=== PATIENT | female | born 1955 | race Hispanic/Latino ===

== ENCOUNTER 2019-08-08 10:44 | Emergency (ER) | payer BC ==
--- NOTE | 2019-08-08 11:22 | RAD REPORT ---
EXAM DESCRIPTION: CT - Ct Stroke Brain Wo Cont - 08/08/2019 11:13 am CLINICAL HISTORY: Confusion/alteration of awareness COMPARISON: none TECHNIQUE: Computed axial tomography of the head was obtained. All CT scans are performed using dose optimization technique as appropriate and may include automated exposure control or mA/KV adjustment according to patient size. FINDINGS: An intracranial bleed is not seen . The ventricles are normal in caliber. No extra-axial fluid collection is noted. Fluid within the sinuses/ mastoids is not seen. IMPRESSION: No acute intracranial abnormality is seen. If patient's symptoms persist MRI of the bra in would be recommended. Dr Salinas of the emergency room was notified at 11:16 a.m. August 08, 2019
[2019-08-08 12:01] LABS: Absolute Lymphocytes (CBC) 1.4 K/uL (0.7-4.9); Basophils % 0.5 % (0-1.3); Hematocrit 38.4 % (36.0-45.0); MPV 8.9 fL (7.6-11.3)
[2019-08-08 12:04] LABS: Protime INR 0.94
[2019-08-08 12:07] LABS: Potassium 3.6 mmol/L (3.5-5.1)
--- NOTE | 2019-08-08 13:15 | RAD REPORT ---
EXAM DESCRIPTION: MRI - Brain W/Wo Cont - 08/08/2019 1:03 pm CLINICAL HISTORY: CONFUSED Headache, drowsiness, CVA symptomology COMPARISON: MRA Head Wo Cont dated 08/08/2019; Ct Stroke Brain Wo Cont dated 08/08/2019 TECHNIQUE: Multi-sequence, multiplanar MR imaging of the brain was performed with contrast. FINDINGS: No intracranial hemorrhage, hydrocephalus, or extra-axial fluid collection.Few tiny foci o f T2 and FLAIR hyperintensity in the periventricular white matter. No edema or shift of midline struc tures. No intracranial mass. DWI is negative for acute CVA. The midline structures are normally formed. Mastoid air cells and paranasal sinuses are clear. Post-contrast images show no abnormal enhancement to suggest tumor or infection. IMPRESSION: Negative for acute CVA or other acute intracranial process.
--- NOTE | 2019-08-08 13:24 | RAD REPORT ---
EXAM DESCRIPTION: MRI - MRA Head Wo Cont - 08/08/2019 12:58 pm CLINICAL HISTORY: CONFUSED CVA COMPARISON: Ct Stroke Brain Wo Cont dated 08/08/2019 FINDINGS: 3D noncontrast [id number] MR angiography of the [place] was performed. No aneurysm, flow-limiting stenosis or vascular malformation is seen. Forward flow seen in left-sided dominant vertebral arteries. The visualized dural venous sinuses appear patent. IMPRESSION: No significant flow abnormality of the [place] is identified.
--- NOTE | 2019-08-08 13:27 | RAD REPORT ---
EXAM DESCRIPTION: MRI - MRA Neck W/Wo Cont - 08/08/2019 1:03 pm CLINICAL HISTORY: CONFUSED Headache, drowsiness, CVA symptomology COMPARISON: No comparisons FINDINGS: Contrast enhance 2D [id number] MR angiography of the neck vessels was performed. A left aortic arch is noted with normal great vessel branching pattern. Subclavian arteries and common carotid arteries bilaterally are widely patent. Mild narrowing is pres ent at the origin of both external carotid arteries. No internal carotid artery stenosis is seen. Lef t-sided dominant vertebral artery is seen with poor flow with both vertebral artery is identified. IMPRESSION: No flow abnormality of the neck vessels identified.
--- OUTSIDE RECORDS SUMMARY | 2019-08-08 13:27 | XMS REPORT | Continuity of Care Document ---
:1955 Author Organization [facility] t Address [address] [id number] Care Team Providers Name Role Phone Unavailable Unavailable Unavailable Payers Payer Name Policy Type Policy Number Effective Date Expiration Date S ource Problems This patient has no known problems. Allergies, Adverse Reactions, Alerts Allergy Allergy Status Severity Reaction(s) Onset Inactive Treating Comm ents Source Name Type Date Date Clinician No Known DA Active U 2006-02 [facility] 03[facility]07 [facility] No Known DA Active U 2006-[facility] 03[facility] No Known DA Active U 2006-02 [facility] 03[facility]07 [facility] No Known DA Active U 2006-02 [facility] Other 03-07 [facility] Medications This patient has no known medications. Procedures This patient has no known procedures. Results This patient has no known results.
--- NOTE | 2019-08-08 13:55 | ER ---
Nurse's Notes [facility] Name: Megha Knox Age: 63 yrs Sex: Female : 1955 Arrival Date: 08/08/2019 Time: 10:50 Bed 3 Private MD: Ramirez Okeefe Diagnosis: Confusion;Malaise and fatigue;Other transient cerebral ischemic attacks and related syndromes Presentation: 08/07 10:58 Chief complaint: Patient states: "I was at work at the [employer] and they have cameras, so ss the HR lady called me and asked me if I was okay. I told her I was a little slow getting started today, and a few coworkers told me my words were backwards." Pt has no complaints other than a L sided headache that started just prior to arrival. Pt states, "for the past 3 weeks or so I've had like palpitations off and on.". Coronavirus screen: Proceed with normal triage. Patient denies a cough. Patient denies shortness of breath or difficulty breathing. Patient denies measured and/or subjective temperature greater than 100.4F prior to today's visit. Patient denies travel on a cruise ship or to a country the [facility] currently lists as an affected area. Patient denies contact with known and/or suspected case of COVID-19. Ebola Screen: Patient denies exposure to infectious person. Patient denies travel to an Ebola-affected area in the 21 days before illness onset. Initial Sepsis Screen: Does the patient meet any 2 criteria? No. Patient's initial sepsis screen is negative. Does the patient have a suspected source of infection? No. Patient's initial sepsis screen is negative. Risk Assessment: Do you want to hurt yourself or someone else? Patient reports no desire to harm self or others. Onset of symptoms is unknown. 10:58 Method Of Arrival: Ambulatory ss 10:58 Acuity: LYRIC 2 ss Historical: - Allergies: 11:03 No Known Allergies; ss - Home Meds: 11:03 diphenhydramine HCl 25 mg Oral cap [Active]; metoprolol tartrate 25 mg Oral tab 1 tab ss once daily [Active]; - PMHx: 11:03 Hypertension; ss - PSHx: 11:03 L mastectomy; ss - Immunization history:: Adult Immunizations up to date. - Social history:: Smoking status: Patient denies any tobacco usage or history of. Screenin:15 Abuse screen: Denies threats or abuse. Nutritional screening: No deficits noted. em Tuberculosis screening: No symptoms or risk factors identified. 11:15 Fall Risk None identified. em Assessment: 11:20 General: Appears in no apparent distress. comfortable, Behavior is calm, cooperative, em appropriate for age, Denies fever. Pain: Complains of pain in head Pain currently is 3 out of 10 on a pain scale. Neuro: Level of Consciousness is awake, alert, obeys commands, Oriented to person, place, time, situation, Appropriate for age Filer Helper are equal bilaterally Moves all extremities. Gait is steady, Speech is normal, Facial symmetry appears normal, reports she was told be her co-workers that her speech was "backwards" . Reports headache Denies weakness blurred vision numbness. Cardiovascular: Denies chest pain, Capillary refill < 3 seconds Patient's skin is warm and dry. Respiratory: Airway is patent Respiratory effort is even, unlabored, Respiratory pattern is regular, symmetrical. GI: Abdomen is flat, Patient currently denies nausea, vomiting. Derm: Skin is intact, is healthy with good turgor, Skin is pink, warm \\T\\ dry. Musculoskeletal: Capillary refill < 3 seconds, Range of motion: intact in all extremities. 11:22 Reassessment: Dr Salinas at the bedside. sv 11:57 Reassessment: Patient appears in no apparent distress at this time. pt wheeled to MRI. em 13:00 Reassessment: Patient appears in no apparent distress at this time. Patient and/or em family updated on plan of care and expected duration. Pain level reassessed. Patient is alert, oriented x 3, equal unlabored respirations, skin warm/dry/pink. 14:00 Reassessment: Patient appears in no apparent distress at this time. Patient and/or em family updated on plan of care and expected duration. Pain level reassessed. Patient is alert, oriented x 3, equal unlabored respirations, skin warm/dry/pink. Vital Signs: 10:58 BP 158 / 68; Pulse 78; Resp 15; Temp 98.1(TE); Pulse Ox 100% on R/A; Weight 71.21 kg; ss Height 5 ft. 4 in. (162.56 cm); Pain 3/10; 11:45 BP 157 / 71; Pulse 72; Resp 16; Pulse Ox 100% ; sv 13:23 BP 153 / 81; Pulse 68; Resp 24; Pulse Ox 100% ; sv 10:58 Body Mass Index 26.95 (71.21 kg, 162.56 cm) ED Course: 10:50 Patient arrived in ED. mr 10:50 Ramirez Okeefe MD is Private Physician. mr 11:02 Triage completed. ss 11:03 Arm band placed on right wrist. ss 11:07 Momo Bermeo, RN is Primary Nurse. em 11:13 Guanakito Salinas MD is Attending Physician. kdr 11:14 CT Stroke Brain w/o Contrast In Process Unspecified. EDMS 11:20 Patient has correct armband on for positive identification. Placed in gown. Bed in low em position. Call light in reach. Side rails up X2. Adult w/ patient. threat monitoring analyst on. Pulse ox on. NIBP on. 11:53 Patient moved to MRI via wheelchair. sv 12:58 MRA Head Wo Cont In Process Unspecified. EDMS 13:02 Brain W/Wo Cont In Process Unspecified. EDMS 13:02 MRA Neck W/Wo Cont In Process Unspecified. EDMS 13:52 Ramirez Okeefe MD is Referral Physician. kdr 14:26 No provider procedures requiring assistance completed. IV discontinued, intact, em bleeding controlled, No redness/swelling at site. Pressure dressing applied. Administered Medications: 14:24 Drug: Aspirin 81 mg Route: PO; em 14:24 Follow up: Response: Medication administered at discharge. em Point of Care Testing: Blood Glucose: 11:24 Blood Glucose: 100 mg/dL; em Ranges: Outcome: 13:55 Discharge ordered by . kdr 14:26 Discharged to home ambulatory. em 14:26 Condition: good 14:26 Discharge instructions given to patient, Instructed on discharge instructions, follow up and referral plans. Demonstrated understanding of instructions, follow-up care. 14:30 Patient left the ED. em Signatures: Dispatcher [employer] Jenna Uriarte, RN LAURA Guanakito Salinas MD MD [facility] [address] Destinee Singleton mr Momo Bermeo, LAURA SANCHEZ em Lesley Cabrera RN RN
--- NOTE | 2019-08-08 13:56 | EDPHYS ---
Physician Documentation [facility] Name: Megha Knox Age: 63 yrs Sex: Female : 1955 Arrival Date: 08/08/2019 Time: 10:50 Bed 3 Private MD: Ramirez Okeefe ED Physician Guanakito Salinas HPI: 08/07 16:26 This 63 yrs old Female presents to ER via Ambulatory with complaints of kdr confusion. 16:26 The patient presents with poor speech and slightly confused - resolved. Onset: The kdr symptoms/episode began/occurred suddenly, just prior to arrival. Possible causes: CVA or TIA, seizure. Associated signs and symptoms: Pertinent positives: headache. 08/08 09:47 Current symptoms: In the emergency department the patient's symptoms have resolved, the kdr patient is alert and fully oriented, has normal speech. Patient's baseline: Neuro: alert and fully oriented, Motor: no deficits, Ambulation: walks without assistance, Speech: normal. The patient has not experienced similar symptoms in the past. The patient has not recently seen a physician. Co-workers reported that her speech was not normal and she seemed to be acting differently. Historical: - Allergies: 08/07 11:03 No Known Allergies; ss - Home Meds: 11:03 diphenhydramine HCl 25 mg Oral cap [Active]; metoprolol tartrate 25 mg Oral tab 1 tab ss once daily [Active]; - PMHx: 11:03 Hypertension; ss - PSHx: 11:03 L mastectomy; ss - Immunization history:: Adult Immunizations up to date. - Social history:: Smoking status: Patient denies any tobacco usage or history of. ROS: 08/08 09:47 Constitutional: Negative for fever, chills, and weight loss, Eyes: Negative for injury, kdr pain, redness, and discharge, ENT: Negative for injury, pain, and discharge, Neck: Negative for injury, pain, and swelling, Cardiovascular: Negative for chest pain, palpitations, and edema, Respiratory: Negative for shortness of breath, cough, wheezing, and pleuritic chest pain, Abdomen/GI: Negative for abdominal pain, nausea, vomiting, diarrhea, and constipation, Back: Negative for injury and pain, : Negative for injury, bleeding, discharge, and swelling, MS/Extremity: Negative for injury and deformity, Skin: Negative for injury, rash, and discoloration, Psych: Negative for depression, anxiety, suicide ideation, homicidal ideation, and hallucinations, Allergy/Immunology: Negative for hives, rash, and allergies, Endocrine: Negative for neck swelling, polydipsia, polyuria, polyphagia, and marked weight changes, Hematologic/Lymphatic: Negative for swollen nodes, abnormal bleeding, and unusual bruising. Neuro: Positive for speech changes. Exam: 09:47 Constitutional: This is a well developed, well nourished patient who is awake, alert, kdr and in no acute distress. Head/Face: Normocephalic, atraumatic. Eyes: Pupils equal round and reactive to light, extra-ocular motions intact. Lids and lashes normal. Conjunctiva and sclera are non-icteric and not injected. Cornea within normal limits. Periorbital areas with no swelling, redness, or edema. Neck: Trachea midline, no thyromegaly or masses palpated, and no cervical lymphadenopathy. Supple, full range of motion without nuchal rigidity, or vertebral point tenderness. No Meningismus. Chest/axilla: Normal chest wall appearance and motion. Nontender with no deformity. No lesions are appreciated. Cardiovascular: Regular rate and rhythm with a normal S1 and S2. No gallops, murmurs, or rubs. Normal PMI, no JVD. No pulse deficits. Respiratory: Lungs have equal breath sounds bilaterally, clear to auscultation and percussion. No rales, rhonchi or wheezes noted. No increased work of breathing, no retractions or nasal flaring. Abdomen/GI: Soft, non-tender, with normal bowel sounds. No distension or tympany. No guarding or rebound. No evidence of tenderness throughout. Back: No spinal tenderness. No costovertebral tenderness. Full range of motion. Skin: Warm, dry with normal turgor. Normal color with no rashes, no lesions, and no evidence of cellulitis. MS/ Extremity: Pulses equal, no cyanosis. Neurovascular intact. Full, normal range of motion. Neuro: Awake and alert, GCS 15, oriented to person, place, time, and situation. Cranial nerves II-XII grossly intact. Motor strength 5/5 in all extremities. Sensory grossly intact. Cerebellar exam normal. Normal gait. Psych: Awake, alert, with orientation to person, place and time. Behavior, mood, and affect are within normal limits. Vital Signs: 08/07 10:58 BP 158 / 68; Pulse 78; Resp 15; Temp 98.1(TE); Pulse Ox 100% on R/A; Weight 71.21 kg; ss Height 5 ft. 4 in. (162.56 cm); Pain 3/10; 11:45 BP 157 / 71; Pulse 72; Resp 16; Pulse Ox 100% ; sv 13:23 BP 153 / 81; Pulse 68; Resp 24; Pulse Ox 100% ; sv 10:58 Body Mass Index 26.95 (71.21 kg, 162.56 cm) ss MDM: 11:16 ED course: CT Head Negative: Dr. Hutchins. kdr 13:55 Patient medically screened. kdr 08/08 09:47 Data reviewed: vital signs, nurses notes, lab test result(s), radiologic studies. kdr Counseling: I had a detailed discussion with the patient and/or guardian regarding: the historical points, exam findings, and any diagnostic results supporting the discharge/admit diagnosis, lab results, radiology results, the need for outpatient follow up. 08/07 11:19 Order name: Protime (+inr); Complete Time: 12:34 kdr 08/07 11:19 Order name: Basic Metabolic Panel; Complete Time: 12:34 kdr 08/07 11:06 Order name: CT Stroke Brain w/o Contrast; Complete Time: 12:34 mt 08/07 11:19 Order name: CBC with Diff; Complete Time: 12:34 kdr 08/07 11:32 Order name: Glucose, Ancillary Testing; Complete Time: 12:34 EDMS 08/07 11:19 Order name: EKG; Complete Time: 11:19 kdr 08/07 11:19 Order name: Cardiac monitoring; Complete Time: 11:28 kdr 08/07 11:19 Order name: EKG - Nurse/Tech; Complete Time: 11:53 kdr 08/07 11:19 Order name: IV Saline Lock; Complete Time: 11:53 kdr 08/07 12:57 Order name: MRA Head Wo Cont; Complete Time: 13:51 EDMS 08/07 12:57 Order name: Brain W/Wo Cont; Complete Time: 13:51 EDMS 08/07 12:57 Order name: MRA Neck W/Wo Cont; Complete Time: 13:51 EDKS 08/07 11:19 Order name: Labs collected and sent; Complete Time: 11:53 kdr 08/07 11:19 Order name: NPO; Complete Time: 11: kdr 08/07 11:19 Order name: O2 Per Protocol; Complete Time: 11: kdr 08/07 11:19 Order name: O2 Sat Monitoring; Complete Time: 11: kdr 08/07 11:19 Order name: Stroke Swallow Screen; Complete Time: :53 kdr Administered Medications: 08/07 14:24 Drug: Aspirin 81 mg Route: PO; em 14:24 Follow up: Response: Medication administered at discharge. em Point of Care Testing: Blood Glucose: 11:24 Blood Glucose: 100 mg/dL; em Ranges: Critical Glucose Levels:Adult <50 mg/dl or >400 mg/dl <40 mg/dl or >180 mg/dl Disposition: 08/08/19 13:55 Discharged to Home. Impression: Confusion, Malaise and fatigue, Other transient cerebral ischemic attacks and related syndromes. - Condition is Stable. - Discharge Instructions: Confusion, Transient Ischemic Attack, [id number]. - Medication Reconciliation Form, Thank You Letter form. - Follow up: Ramirez Okeefe MD; When: 2 - 3 days; Reason: If symptoms return, Further diagnostic work-up, Recheck today's complaints, Continuance of care, Re-evaluation by your physician. - Problem is new. - Symptoms have improved. Signatures: Dispatcher [employer] [facility] Guanakito Salinas MD MD [facility] Momo Bermeo, LAURA RN Lesley Cabrera RN RN ss Corrections: (The following items were deleted from the chart) 12:57 11:18 MR STROKE PROTOCOL+MRI.RAD.BRZ ordered. [facility] 14:13 13:55 08/08/2019 13:55 Discharged to Home. Impression: Confusion; Malaise and fatigue. kdr Condition is Stable. Forms are Medication Reconciliation Form, Thank You Letter, Antibiotic Education, Prescription Opioid Use. Follow up: Ramirez Okeefe; When: 2 - 3 days; Reason: If symptoms return, Further diagnostic work-up, Recheck today's complaints, Continuance of care, Re-evaluation by your physician. Problem is new. Symptoms have improved. kdr 14:30 14:13 08/08/2019 13:55 Discharged to Home. Impression: Confusion; Malaise and fatigue; em Other transient cerebral ischemic attacks and related syndromes. Condition is Stable. Discharge Instructions: Confusion. Forms are Medication Reconciliation Form, Thank You Letter. Follow up: Ramirez Okeefe; When: 2 - 3 days; Reason: If symptoms return, Further diagnostic work-up, Recheck today's complaints, Continuance of care, Re-evaluation by your physician. Problem is new. Symptoms have improved. kdr
[2019-08-08] MEDS ORDERED: ASPIRIN 81 MG CHEWABLE TABLET ONE (14:20)
[2019-08-08 14:37] VITALS: TEMP 98.1; O2SAT 100
[2019-08-08 14:39] VITALS: BP 153/81
--- NOTE | 2019-08-09 07:18 | EKG ---
Test Date: 2019-08-08 Test Time: 11:33:18 Airborne Weapons Technical Manager: LETITIA MEASUREMENT RESULTS: Intervals: Rate: 74 IA: 146 QRSD: 80 QT: 406 QTc: 450 [place]: P: 53 IA: 146 QRS: 68 T: 74 INTERPRETIVE STATEMENTS: Normal sinus rhythm Septal infarct, age undetermined Abnormal ECG Compared to ECG 06/03/2007 09:51:48 Myocardial infarct finding now present Electronically Signed On 08-09-19 07:15:51 CDT by Pb Hicks
== END 2019-08-08 14:30 | disposition home or self-care (01) ==
LOC: ER 10:44
DX: G45.8 Other transient cerebral ischemic attacks and related syndromes (principal); R53.81 Other malaise; R53.83 Other fatigue; I10 Essential (primary) hypertension; Z90.12 Acquired absence of left breast and nipple
CPT/HCPCS: 93005; 85025; 80048; 36415; 85610; 82947; 70450; 70553; 70544; 70549; 99285; A9577

== ENCOUNTER 2019-08-12 12:11 | Emergency (ER) | payer BC, SELFPAY ==
--- OUTSIDE RECORDS SUMMARY | 2019-08-12 12:28 | XMS REPORT | Continuity of Care Document ---
:1955 Author Organization [facility] t Address [address] [place] [address] Care Team Providers Name Role Phone Unavailable [...] 2006-02 [facility] No Known DA Active U 2006-02 [facility] 03[facility]07 [facility] No Known DA Active U 2006-02 [facility] Other 03[facility]07 [facility] Medications This patient has no known medications. Procedures This patient has no known procedures. Results This patient has no known results.
[2019-08-12 13:26] LABS: Absolute Lymphocytes (CBC) 1.8 K/uL (0.7-4.9); Basophils % 0.6 % (0-1.3); Hematocrit 38.2 % (36.0-45.0); Lymphocytes % 29.4 % (15.3-44.8); MPV 9.2 fL (7.6-11.3); RBC Red Blood Cell Count 3.98 M/uL (3.86-4.86)
[2019-08-12 13:30] LABS: Protime INR 0.99
[2019-08-12 13:37] LABS: ALT/SGPT 28 U/L (12-78); AST/SGOT 21 U/L (15-37); Albumin 3.9 g/dL (3.4-5.0); Alkaline Phosphatase 83 U/L (45-117); BUN Blood Urea Nitrogen 18 mg/dL (7-18); Bicarbonate 24 mmol/L (21-32); Bilirubin Direct < 0.1 mg/dL (0-0.2); Bilirubin Total 0.4 mg/dL (0.2-1.0); Glucose Level 98 mg/dL (74-106); Lipase 127 U/L (73-393); Potassium 3.9 mmol/L (3.5-5.1); Protein, Total 7.7 g/dL (6.4-8.2); Sodium Level 142 mmol/L (136-145)
--- NOTE | 2019-08-12 14:17 | EDPHYS ---
Physician Documentation [facility] Name: Megha Knox Age: 63 yrs Sex: Female : 1955 Arrival Date: 08/12/2019 Time: 12:29 Bed 4 Private MD: Ramirez Okeefe ED Physician Radha Figueroa HPI: 08/11 14:14 This 63 yrs old Female presents to ER via Ambulatory with complaints of Blood ma2 work. 14:14 Onset: The symptoms/episode began/occurred gradually, 1 day(s) ago. Severity of ma2 symptoms: At their worst the symptoms were mild in the emergency department the symptoms are unchanged. sent by dr. okeefe for hb of 7.5, however on repeated testing here it is 12.9 blood work all wnl, she has no symptoms . Historical: - Allergies: 12:48 No Known Allergies; dm5 - Home Meds: 12:48 zolpidem 5 mg Oral tab 1 tab once daily [Active]; metoprolol tartrate 25 mg Oral tab 1 dm5 tab once daily [Active]; diphenhydramine HCl 25 mg Oral cap [Active]; - PMHx: 12:48 Hypertension; insomnia; breast cancer; dm5 - PSHx: 12:48 Mastectomy, Left; port placement; dm5 - Immunization history:: Adult Immunizations not up to date. - Social history:: Smoking status: Patient/guardian denies using tobacco, but has a distant history of tobacco abuse, Patient/guardian denies using alcohol, street drugs, The patient lives with family. - Family history:: not pertinent. ROS: 14:14 Constitutional: Negative for fever, chills, and weight loss. ma2 14:14 All other systems are negative. Exam: 14:14 Constitutional: This is a well developed, well nourished patient who is awake, alert, ma2 and in no acute distress. Eyes: Pupils equal round and reactive to light, extra-ocular motions intact. Lids and lashes normal. Conjunctiva and sclera are non-icteric and not injected. Cornea within normal limits. Periorbital areas with no swelling, redness, or edema. ENT: Nares patent. No nasal discharge, no septal abnormalities noted. Tympanic membranes are normal and external auditory canals are clear. Oropharynx with no redness, swelling, or masses, exudates, or evidence of obstruction, uvula midline. Mucous membranes moist. Neck: Trachea midline, no thyromegaly or masses palpated, and no cervical lymphadenopathy. Supple, full range of motion without nuchal rigidity, or vertebral point tenderness. No Meningismus. Chest/axilla: Normal chest wall appearance and motion. Nontender with no deformity. No lesions are appreciated. Cardiovascular: Regular rate and rhythm with a normal S1 and S2. No gallops, murmurs, or rubs. Normal PMI, no JVD. No pulse deficits. Respiratory: Lungs have equal breath sounds bilaterally, clear to auscultation and percussion. No rales, rhonchi or wheezes noted. No increased work of breathing, no retractions or nasal flaring. Abdomen/GI: Soft, non-tender, with normal bowel sounds. No distension or tympany. No guarding or rebound. No evidence of tenderness throughout. Skin: Warm, dry with normal turgor. Normal color with no rashes, no lesions, and no evidence of cellulitis. MS/ Extremity: Pulses equal, no cyanosis. Neurovascular intact. Full, normal range of motion. Neuro: Awake and alert, GCS 15, oriented to person, place, time, and situation. Cranial nerves II-XII grossly intact. Motor strength 5/5 in all extremities. Sensory grossly intact. Cerebellar exam normal. Normal gait. Vital Signs: 12:43 BP 153 / 67; Pulse 67; Resp 18; Temp 98.7; Pulse Ox 98% on R/A; Weight 70.2 kg (M); dm5 Height 5 ft. 4 in. (162.56 cm) (R); Pain 2/10; 13:42 BP 175 / 74; Pulse 62; Resp 18; Pulse Ox 99% ; sv 14:13 BP 170 / 68; Pulse 62; Resp 16; Pulse Ox 98% ; sv 14:49 BP 155 / 75; Pulse 64; Resp 18; Temp 98.9; Pulse Ox 98% on R/A; dm5 12:43 Body Mass Index 26.56 (70.20 kg, 162.56 cm) dm5 MDM: 12:38 Patient medically screened. ma2 14:14 Differential Diagnosis. Data reviewed: vital signs, nurses notes. Counseling: I had a ma2 detailed discussion with the patient and/or guardian regarding: the historical points, exam findings, and any diagnostic results supporting the discharge/admit diagnosis, the presence of at least one elevated blood pressure reading (>120/80) during this emergency department visit, the need for outpatient follow up. Response to treatment: the patient's symptoms have markedly improved after treatment. 08/11 12:39 Order name: Basic Metabolic Panel; Complete Time: 13:41 ma2 08/11 12:39 Order name: CBC with Diff; Complete Time: 13:41 ma2 08/11 12:39 Order name: Hepatic Function; Complete Time: 13:41 ma2 08/11 12:39 Order name: Lipase; Complete Time: 13:41 ma2 08/11 12:39 Order name: Pth,Intact ma2 08/11 12:39 Order name: PT-INR; Complete Time: 13:41 ma2 08/11 12:39 Order name: IV Saline Lock; Complete Time: 13:36 ma2 08/11 12:39 Order name: Labs collected and sent; Complete Time: 13:36 ma2 08/11 12:39 Order name: Ptt, Activated; Complete Time: 13:41 ma2 08/11 13:08 Order name: Type And Screen dm5 08/11 14:16 Order name: ABO/RH no charge EDMS Administered Medications: No medications were administered Disposition: 08/12/19 14:16 Discharged to Home. Impression: Headache. - Condition is Stable. - Discharge Instructions: General Headache Without Cause. - Prescriptions for Reglan 10 mg Oral Tablet - take 1 tablet by ORAL route every 6 hours . take 30 minutes before meals and at bedtime; 100 tablet. - Medication Reconciliation Form, Thank You Letter, Antibiotic Education, Prescription Opioid Use form. - Follow up: Private Physician; When: Tomorrow; Reason: Continuance of care. Signatures: [facility] ED[facility] Lin Rose RN RN dm5 Radha Figueroa MD MD ma2 Corrections: (The following items were deleted from the chart) 14:51 14:16 08/12/2019 14:16 Discharged to Home. Impression: Headache. Condition is Stable. dm5 Forms are Medication Reconciliation Form, Thank You Letter, Antibiotic Education, Prescription Opioid Use. Follow up: Private Physician; When: Tomorrow; Reason: Continuance of care. ma2
--- NOTE | 2019-08-12 14:17 | ER ---
Nurse's Notes [facility] Name: Megha Knox Age: 63 yrs Sex: Female : 1955 Arrival Date: 08/12/2019 Time: 12:29 Bed 4 Private MD: Ramirez Okeefe Diagnosis: Headache Presentation: 08/11 12:43 Chief complaint: Patient states: seen here Wednesday, followed up with Dr. Okeefe on dm5 Wednesday. Called today by Dr. Okeefe and told to come to the ED for additional blood work and possible transfusion. Coronavirus screen: Proceed with normal triage. Patient denies a cough. Patient denies shortness of breath or difficulty breathing. Patient denies measured and/or subjective temperature greater than 100.4F prior to today's visit. Patient denies travel on a cruise ship or to a country the [facility] currently lists as an affected area. Patient denies contact with known and/or suspected case of COVID-19. Ebola Screen: Patient negative for fever greater than or equal to 101.5 degrees Fahrenheit, and additional compatible Ebola Virus Disease symptoms Patient denies exposure to infectious person. Patient denies travel to an Ebola-affected area in the 21 days before illness onset. No symptoms or risks identified at this time. Initial Sepsis Screen: Does the patient meet any 2 criteria? No. Patient's initial sepsis screen is negative. Does the patient have a suspected source of infection? No. Patient's initial sepsis screen is negative. Risk Assessment: Do you want to hurt yourself or someone else? Patient reports no desire to harm self or others. Onset of symptoms was August 12, 2019. 12:43 Method Of Arrival: Ambulatory dm5 12:43 Acuity: LYRIC 3 dm5 Triage Assessment: 12:48 General: Appears in no apparent distress. Behavior is calm, cooperative. Pain: dm5 Complains of pain in left side of forehead Pain currently is 2 out of 10 on a pain scale. Neuro: Level of Consciousness is awake, alert, obeys commands, Oriented to person, place, time. Neuro: Denies dizziness. Respiratory: Airway is patent Respiratory effort is even, unlabored, relaxed, Respiratory pattern is regular. Derm: Skin is pink, warm \T\ dry. Historical: - Allergies: 12:48 No Known Allergies; dm5 - Home Meds: 12:48 zolpidem 5 mg Oral tab 1 tab once daily [Active]; metoprolol tartrate 25 mg Oral tab 1 dm5 tab once daily [Active]; diphenhydramine HCl 25 mg Oral cap [Active]; - PMHx: 12:48 Hypertension; insomnia; breast cancer; dm5 - PSHx: 12:48 Mastectomy, Left; port placement; dm5 - Immunization history:: Adult Immunizations not up to date. - Social history:: Smoking status: Patient/guardian denies using tobacco, but has a distant history of tobacco abuse, Patient/guardian denies using alcohol, street drugs, The patient lives with family. - Family history:: not pertinent. Screenin:00 Abuse screen: Denies threats or abuse. Denies injuries from another. Nutritional sv screening: No deficits noted. Tuberculosis screening: No symptoms or risk factors identified. Fall Risk None identified. Assessment: 13:00 General: Appears in no apparent distress. comfortable, well groomed, well developed, sv Behavior is calm, cooperative, appropriate for age. Pain: Denies pain. Neuro: Level of Consciousness is awake, alert, obeys commands, Oriented to person, place, time, situation, Moves all extremities. Full function Gait is steady. Respiratory: Respiratory effort is even, unlabored, Respiratory pattern is regular, symmetrical. Derm: Skin is intact, Skin is pink, warm \T\ dry. Vital Signs: 12:43 BP 153 / 67; Pulse 67; Resp 18; Temp 98.7; Pulse Ox 98% on R/A; Weight 70.2 kg (M); dm5 Height 5 ft. 4 in. (162.56 cm) (R); Pain 2/10; 13:42 BP 175 / 74; Pulse 62; Resp 18; Pulse Ox 99% ; sv 14:13 BP 170 / 68; Pulse 62; Resp 16; Pulse Ox 98% ; sv 14:49 BP 155 / 75; Pulse 64; Resp 18; Temp 98.9; Pulse Ox 98% on R/A; dm5 12:43 Body Mass Index 26.56 (70.20 kg, 162.56 cm) 5 ED Course: 12:29 Patient arrived in ED. mr 12:30 Ramirez Okeefe MD is Private Physician. mr 12:38 Radha Figueroa MD is Attending Physician. ma2 12:45 Triage completed. dm5 12:48 Arm band placed on left wrist. Patient placed in an exam room. dm5 13:00 Patient has correct armband on for positive identification. Placed in gown. Bed in low sv position. Pulse ox on. NIBP on. Door closed. Head of bed elevated. 13:06 Jenna Cedillo, RN is Primary Nurse. sv 13:09 Initial lab(s) drawn, by me, sent to lab. Inserted saline lock: 22 gauge in right kj1 antecubital area, using aseptic technique. Blood collected. 14:49 IV discontinued, intact, bleeding controlled, No redness/swelling at site. Pressure dm5 dressing applied. 14:49 No provider procedures requiring assistance completed. sv Administered Medications: No medications were administered Outcome: 14:16 Discharge ordered by . al2 14:49 Discharged to home ambulatory. dm5 14:49 Condition: good 14:49 Discharge instructions given to patient, Instructed on discharge instructions, follow up and referral plans. medication usage, Demonstrated understanding of instructions, follow-up care, medications. 14:51 Patient left the ED. dm5 Signatures: Lin Rose, RN RN dm5 Jenna Cedillo, LAURA SylvesteraDestinee mr Radha Figueroa MD MD ma2 Jackson, Kandis kj1
[2019-08-12 15:01] VITALS: O2SAT 98
[2019-08-12 15:02] VITALS: BP 155/75; TEMP 98.9
== END 2019-08-12 14:51 | disposition home or self-care (01) ==
LOC: ER 12:11
DX: R51 Headache (principal); I10 Essential (primary) hypertension; Z85.3 Personal history of malignant neoplasm of breast; Z90.12 Acquired absence of left breast and nipple
CPT/HCPCS: 36415; 80048; 80076; 83690; 83970; 85025; 85610; 85730; 86850; 86900; 86901; 99284

== ENCOUNTER 2020-03-19 15:40 | Emergency (ER) | payer OTHER ==
[2020-03-19 20:36] LABS: Absolute Lymphocytes (CBC) 1.8 K/uL (0.7-4.9); Basophils % 0.6 % (0-1.3); Hematocrit 36.3 % (36.0-45.0); Lymphocytes % 26.8 % (15.3-44.8); MPV 8.8 fL (7.6-11.3); RBC Red Blood Cell Count 3.91 M/uL (3.86-4.86)
[2020-03-19 20:42] LABS: Protime INR 0.95
[2020-03-19 20:54] LABS: ALT/SGPT 37 U/L (12-78); AST/SGOT 23 U/L (15-37); Albumin 3.8 g/dL (3.4-5.0); Alkaline Phosphatase 93 U/L (45-117); BUN Blood Urea Nitrogen 21 mg/dL (7-18); Bicarbonate 26 mmol/L (21-32); Bilirubin Direct < 0.1 mg/dL (0-0.2); Bilirubin Total 0.4 mg/dL (0.2-1.0); Glucose Level 100 mg/dL (74-106); Magnesium 2.1 mg/dL (1.8-2.4); NT PRO-BNP 179 pg/mL (<125); Protein, Total 7.4 g/dL (6.4-8.2); Sodium Level 145 mmol/L (136-145); Troponin (Emerg Dept Use Only) < 0.02 ng/mL (0.0-0.045)
--- NOTE | 2020-03-19 23:13 | EDPHYS ---
Physician Documentation [facility] Name: Megha Knox Age: 64 yrs Sex: Female : 1955 Arrival Date: 03/19/2020 Time: 15:43 Bed 16 Private MD: ED Physician Radha Figueroa HPI: 03/19 19:35 This 64 yrs old Female presents to ER via Ambulatory with complaints of cp Abnormal Lab Results, Hand Swelling. 19:35 The patient or guardian complains of swelling. cp 19:35 The complaints affect the left arm and left hand. Context: resulted from unknown cause. cp Onset: The symptoms/episode began/occurred 6 day(s) ago. Treatment prior to arrival includes: no previous treatment. Patient reports she was referred to ED for evaluation of left hand and arm swelling for past 6 days. Patient reports she had blood drawn today that showed elevated d-dimer. Patient reports history of left side breast cancer with mastectomy. 19:35 Associated signs and symptoms: Pertinent negatives: pain, injury, shortness of breath, cp chest pain. Historical: - Allergies: 15:56 No Known Allergies; ll1 - PMHx: 15:56 breast cancer; Hypertension; insomnia; "light stroke"; ll1 - PSHx: 15:56 Mastectomy, Left; port placement; ll1 - Immunization history:: Flu vaccine is up to date. - Social history:: Smoking status: Patient denies any tobacco usage or history of. ROS: 19:40 Constitutional: Negative for body aches, chills, fever, poor PO intake. cp 19:40 Eyes: Negative for injury, pain, redness, and discharge. cp 19:40 ENT: Negative for ear pain, sore throat, difficulty swallowing, difficulty handling secretions. 19:40 Cardiovascular: Negative for chest pain, palpitations. 19:40 Respiratory: Negative for cough, shortness of breath, wheezing. 19:40 Abdomen/GI: Negative for abdominal pain, nausea, vomiting, and diarrhea, constipation. 19:40 Back: Negative for pain at rest, pain with movement. 19:40 MS/extremity: Positive for swelling, of the left hand and left arm, Negative for injury or acute deformity, decreased range of motion, paresthesias. 19:40 Skin: Negative for rash. 19:40 Neuro: Negative for altered mental status, headache, syncope, weakness. 19:40 All other systems are negative. Exam: 19:45 Constitutional: The patient appears in no acute distress, alert, awake, cp non-diaphoretic, non-toxic, well developed, well nourished. 19:45 Head/Face: Normocephalic, atraumatic. cp 19:45 Eyes: Periorbital structures: appear normal, Conjunctiva: normal, no exudate, no injection, Sclera: no appreciated abnormality, Lids and lashes: appear normal, bilaterally. 19:45 ENT: External ear(s): are unremarkable, Nose: is normal, Mouth: Lips: moist, Oral mucosa: moist, Posterior pharynx: Airway: no evidence of obstruction, patent. 19:45 Neck: ROM/movement: is normal, is supple, without pain, no range of motions limitations, no nuchal rigidity. 19:45 Chest/axilla: Inspection: left breast surgically absent, Palpation: is normal, no crepitus, no tenderness. 19:45 Cardiovascular: Rate: normal, Rhythm: regular, Pulses: Pulses are 2+ in right radial artery and left radial artery. JVD: is not appreciated. 19:45 Respiratory: the patient does not display signs of respiratory distress, Respirations: normal, no use of accessory muscles, no retractions, labored breathing, is not present, Breath sounds: are clear throughout, no decreased breath sounds, no stridor, no wheezing. 19:45 Abdomen/GI: Inspection: abdomen appears normal, Palpation: abdomen is soft and non-tender, in all quadrants. 19:45 Back: pain, is absent, ROM is normal. 19:45 Musculoskeletal/extremity: Extremities: grossly normal except: noted in the left hand and left arm: swelling. 19:45 Skin: cellulitis, is not appreciated, no rash present. 19:45 Neuro: Orientation: to person, place \\T\\ time. Mentation: is normal, Motor: moves all fours, strength is normal. 20:12 ECG was reviewed by the Attending Physician. cp Vital Signs: 15:52 BP 187 / 80; Pulse 75; Resp 17; Pulse Ox 98% ; Weight 72.57 kg; Height 5 ft. 4 in. ll1 (162.56 cm); Pain 0/10; 15:57 Temp 98.1; ll1 19:25 BP 183 / 85; Pulse 80; Resp 14; Pulse Ox 98% on R/A; vg1 20:00 BP 183 / 64; Pulse 70; Resp 16; Pulse Ox 100% on R/A; vg1 21:00 BP 171 / 77; Pulse 86; Resp 20; Pulse Ox 100% on R/A; vg1 22:00 BP 160 / 82; Pulse 77; Resp 16; Pulse Ox 100% on R/A; vg1 23:00 BP 180 / 88; Pulse 70; Resp 14; Pulse Ox 100% on R/A; vg1 15:52 Body Mass Index 27.46 (72.57 kg, 162.56 cm) ll1 MDM: 19:28 Patient medically screened. cp 20:00 Differential diagnosis: DVT, dependent edema, cellulitis, pulmonary embolism. cp 21:36 ED course: US tech reports US left arm negative for DVT. cp 23:10 Data reviewed: vital signs, nurses notes, lab test result(s), EKG, radiologic studies, cp CT scan, plain films, ultrasound. 23:10 Test interpretation: by ED physician or midlevel provider: ECG, plain radiologic cp studies. Counseling: I had a detailed discussion with the patient and/or guardian regarding: the historical points, exam findings, and any diagnostic results supporting the discharge/admit diagnosis, lab results, radiology results, the need for outpatient follow up, a family practitioner, to return to the emergency department if symptoms worsen or persist or if there are any questions or concerns that arise at home. 23:11 ED course: VSS. Reviewed results of labs, EKG and radiology studies. US negative for cp DVT and CT chest negative for PE. Will discharge to home for continued monitoring. Recommend use of compression sleeve for swelling. 03/19 19:31 Order name: Basic Metabolic Panel cp 03/19 19:31 Order name: CBC with Diff cp 03/19 19:31 Order name: LFT's cp 03/19 19:31 Order name: Magnesium; Complete Time: 21:19 cp 03/19 19:31 Order name: NT PRO-BNP; Complete Time: 21:19 cp 03/19 21:20 Interpretation: Abnormal: NT PRO-BNP 179. cp 03/19 19:31 Order name: PT-INR; Complete Time: 21:19 cp 03/19 19:31 Order name: Troponin (emerg Dept Use Only); Complete Time: 21:19 cp / 21:20 Interpretation: TROPED < 0.02; Reviewed. 03/19 19:31 Order name: XRAY Chest (1 view) cp 03/19 19:31 Order name: EKG; Complete Time: 19:32 cp 03/19 19:31 Order name: US Extremity Venous Unilateral Ltd cp 03/19 19:31 Order name: Basic Metabolic Panel; Complete Time: 21:19 EDMS 03/19 21:20 Interpretation: Normal except: CL 111; BUN 21; GFR 73. 03/19 19:31 Order name: CBC with Automated Diff; Complete Time: 20:37 EDMS 03/19 20:38 Interpretation: Reviewed. 03/19 19:32 Order name: Liver (Hepatic) Function; Complete Time: 21:19 EDMS 03/19 23:25 Interpretation: Normal except: GLOB 3.6. cp 03/19 20:47 Order name: CT Chest For PE Angio 03/19 19:31 Order name: Cardiac monitoring; Complete Time: 20:22 cp 03/19 19:31 Order name: EKG - Nurse/Tech; Complete Time: 20:22 cp 03/19 19:31 Order name: IV Saline Lock; Complete Time: 20:22 cp 03/19 19:31 Order name: Labs collected and sent; Complete Time: 20:22 cp 03/19 19:31 Order name: O2 Per Protocol; Complete Time: 20:03 cp 03/19 19:31 Order name: O2 Sat Monitoring; Complete Time: 20:03 cp EC:12 Rate is 64 beats/min. Rhythm is regular. RI interval is normal. QRS interval is normal. cp QT interval is normal. T waves are Inverted in leads aVL, aVR. Interpreted by me. Reviewed by me. Administered Medications: No medications were administered Disposition: 03/20 06:59 Co-signature as Attending Physician, Radha Figueroa MD. ma2 Disposition: 03/19/20 23:12 Discharged to Home. Impression: Edema, not elsewhere classified - left arm, Elevated blood-pressure reading, without diagnosis of hypertension. - Condition is Stable. - Discharge Instructions: Edema, How to Take Your Blood Pressure, [id number], Form - Blood Pressure Record Sheet. - Medication Reconciliation Form, Thank You Letter, Antibiotic Education, Prescription Opioid Use form. - Follow up: Private Physician; When: 1 - 2 days; Reason: Recheck today's complaints. - Problem is new. - Symptoms have improved. Signatures: Dispatcher [employer] EDMS Ramin Comer PA PA cp Alzahri, Mohammad, MD MD ma2 Karolyn Marroquin RN RN vg1 Aryan Holbrook RN RN ll1 Corrections: (The following items were deleted from the chart) 03/19 23:29 23:12 03/19/2020 23:12 Discharged to Home. Impression: Edema, not elsewhere classified vg1 - left arm; Elevated blood-pressure reading, without diagnosis of hypertension. Condition is Stable. Forms are Medication Reconciliation Form, Thank You Letter, Antibiotic Education, Prescription Opioid Use. Follow up: Private Physician; When: 1 - 2 days; Reason: Recheck today's complaints. Problem is new. Symptoms have improved. cp 03/20 22:32 03/19 19:35 Patient reports she was referred to ED for evaluation of left hand and arm cp swelling for past 6 days. Patient reports she had blood drawn t. cp
--- NOTE | 2020-03-19 23:13 | ER ---
Nurse's Notes [facility] Name: Megha Knox Age: 64 yrs Sex: Female : 1955 Arrival Date: 03/19/2020 Time: 15:43 Bed 16 Private MD: Diagnosis: Edema, not elsewhere classified-left arm;Elevated blood-pressure reading, without diagnosis of hypertension Presentation: 03/19 15:52 Chief complaint: Patient states: L hand swelling for 6 days. Had blood drawn today, ll1 called at home and told to go to the ER for CT scan and abnormal lab results. RUQ pain and dizziness off/on. Coronavirus screen: Client denies travel out of the [place] in the last 14 days. At this time, the client does not indicate any symptoms associated with coronavirus-19. Ebola Screen: Patient denies travel to an Ebola-affected area in the 21 days before illness onset. Initial Sepsis Screen: Does the patient meet any 2 criteria? No. Patient's initial sepsis screen is negative. Does the patient have a suspected source of infection? Yes: Other: hand swelling. Risk Assessment: Do you want to hurt yourself or someone else? Patient reports no desire to harm self or others. Onset of symptoms was March 13, 2020. 15:52 Method Of Arrival: Ambulatory [facility] 15:52 Acuity: LYRIC 3 ll1 Historical: - Allergies: 15:56 No Known Allergies; ll1 - PMHx: 15:56 breast cancer; Hypertension; insomnia; "light stroke"; ll1 - PSHx: 15:56 Mastectomy, Left; port placement; ll1 - Immunization history:: Flu vaccine is up to date. - Social history:: Smoking status: Patient denies any tobacco usage or history of. Screenin:24 Abuse screen: Denies threats or abuse. Nutritional screening: No deficits noted. vg1 Tuberculosis screening: No symptoms or risk factors identified. Fall Risk No fall in past 12 months (0 pts). No secondary diagnosis (0 pts). IV access (20 points). Ambulatory Aid- None/Bed Rest/Nurse Assist (0 pts). Gait- Normal/Bed Rest/Wheelchair (0 pts) Mental Status- Oriented to own ability (0 pts). Total Srivastava Fall Scale indicates No Risk (0-24 pts). Assessment: 19:25 General: Appears in no apparent distress. comfortable, Behavior is calm, cooperative. vg1 Pain: Denies pain. Neuro: Level of Consciousness is awake, alert, obeys commands, Oriented to person, place, time, situation. Cardiovascular: Patient's skin is warm and dry. Respiratory: Airway is patent Respiratory effort is even, unlabored, Respiratory pattern is regular, symmetrical. GI: No signs and/or symptoms were reported involving the gastrointestinal system. : No signs and/or symptoms were reported regarding the genitourinary system. EENT: No signs and/or symptoms were reported regarding the EENT system. Derm: Skin is intact, is healthy with good turgor. Musculoskeletal: Circulation, motion, and sensation intact. Swelling present in left hand and left arm. 21:29 Reassessment: Patient appears in no apparent distress at this time. No changes from vg1 previously documented assessment. Patient and/or family updated on plan of care and expected duration. Pain level reassessed. Patient is alert, oriented x 3, equal unlabored respirations, skin warm/dry/pink. 22:42 Reassessment: Patient appears in no apparent distress at this time. No changes from vg1 previously documented assessment. Patient and/or family updated on plan of care and expected duration. Pain level reassessed. Patient is alert, oriented x 3, equal unlabored respirations, skin warm/dry/pink. Patient denies pain at this time. Vital Signs: 15:52 BP 187 / 80; Pulse 75; Resp 17; Pulse Ox 98% ; Weight 72.57 kg; Height 5 ft. 4 in. ll1 (162.56 cm); Pain 0/10; 15:57 Temp 98.1; ll1 19:25 BP 183 / 85; Pulse 80; Resp 14; Pulse Ox 98% on R/A; vg1 20:00 BP 183 / 64; Pulse 70; Resp 16; Pulse Ox 100% on R/A; vg1 21:00 BP 171 / 77; Pulse 86; Resp 20; Pulse Ox 100% on R/A; vg1 22:00 BP 160 / 82; Pulse 77; Resp 16; Pulse Ox 100% on R/A; vg1 23:00 BP 180 / 88; Pulse 70; Resp 14; Pulse Ox 100% on R/A; vg1 15:52 Body Mass Index 27.46 (72.57 kg, 162.56 cm) ll1 ED Course: 15:43 Patient arrived in ED. as 15:55 Triage completed. ll1 15:56 Arm band placed on. ll1 19:18 Ramin Comer PA is PHCP. cp 19:18 Radha Figueroa MD is Attending Physician. cp 19:18 Karolyn Marroquin, RN is Primary Nurse. vg1 20:22 XRAY Chest (1 view) In Process Unspecified. EDMS 20:22 Initial lab(s) drawn, by me, sent to lab. Inserted saline lock: 22 gauge in right vg1 antecubital area, using aseptic technique. Blood collected. 20:25 Patient has correct armband on for positive identification. Placed in gown. Bed in low vg1 position. Call light in reach. Side rails up X 1. 20:53 US at bedside. vg1 21:25 US Extremity Venous Unilateral Ltd In Process Unspecified. EDMS 21:[address] via stretcher. vg1 21:44 CT Chest For PE Angio In Process Unspecified. EDMS 23:28 No provider procedures requiring assistance completed. IV discontinued, intact, vg1 bleeding controlled, No redness/swelling at site. Pressure dressing applied. Administered Medications: No medications were administered Outcome: 23:12 Discharge ordered by . cp 23:28 Discharged to home ambulatory. vg1 23:28 Condition: stable 23:28 Discharge instructions given to patient, Instructed on discharge instructions, follow up and referral plans. Demonstrated understanding of instructions, follow-up care. 23:29 Patient left the ED. vg1 Signatures: Dispatcher [employer] EDMS Rhonda Knox as Ramin Comer PA PA cp Karolyn Marroquin, RN RN vg1 Aryan Holbrook, LAURA RN ll1
[2020-03-19 23:33] VITALS: TEMP 98.1
[2020-03-19 23:36] VITALS: O2SAT 100
[2020-03-19 23:39] VITALS: BP 180/88
--- NOTE | 2020-03-20 07:05 | RAD REPORT ---
EXAM DESCRIPTION: US - Extremity Venous Uni Ltd - 03/19/2020 9:25 pm CLINICAL HISTORY: Left arm pain and swelling COMPARISON: None. TECHNIQUE: Real-time sonographic evaluation of the left upper extremity deep venous systems was perf ormed. FINDINGS: Normal compressibility, flow augmentation, phasic flow and spontaneous flow are identified in the left upper extremity deep venous system. No intraluminal filling defects seen. Internal jugul ar and subclavian veins are normal as well. A small 6 x 5 mm hypoechoic mass in the soft tissues of the left wrist could be a small ganglion cyst . This is not fully evaluated on this study and can be monitored as clinical findings warrant. IMPRESSION: No DVT in the left upper extremity.
--- NOTE | 2020-03-20 07:15 | RAD REPORT ---
EXAM DESCRIPTION: RAD - Chest Single View - 03/19/2020 8:22 pm CLINICAL HISTORY: left arm swelling, shortness of breath COMPARISON: Two view chest May 2011 TECHNIQUE: AP portable chest image was obtained 03/19/2020 8:22 pm . FINDINGS: No focal mass or consolidation of the lung parenchyma. Left mastectomy changes are present with numerous surgical clips in the left axilla. No failure or volume overload. Heart and vasculatur e are normal. No measurable pleural effusion and no pneumothorax. No acute bony abnormality seen. No acute aortic findings suspected. IMPRESSION: No acute cardiopulmonary process. No significant change from comparison study.
--- NOTE | 2020-03-20 09:24 | RAD REPORT ---
EXAM DESCRIPTION: CT - Chest For Pe Angio - 03/20/2020 6:56 am [facility]: CT CHEST ANGIOGRAPHY WITH IV CONTRAST CLINICAL HISTORY: Left arm swelling. History of breast cancer. COMPARISON: None. TECHNIQUE: CTA of the chest was performed following intravenous administration of iodinated contrast . Axial soft tissue and bone window, and coronal and sagittal soft tissue window reconstructions were created and sent to PACS. 3D postprocessing was performed on an independent workstation, with images sent to PACS for subsequen t review. This exam was performed according to our departmental dose-optimization program, which includes autom ated exposure control, adjustment of the mA and/or kV according to patient size and/or use of iterati ve reconstruction technique. FINDINGS: Vascular: The pulmonary arteries are well-opacified to the segmental level. No CT evidence of acute pulmonary thromboembolism. No evidence of aortic aneurysm or dissection. Mild aortic athero sclerosis. Lungs and pleura: Minimal left apical and anterior left upper lobe pleural parenchymal fibrosis, like ly treatment related. No pulmonary consolidation. No pleural effusion. No pneumothorax. Mediastinum and neck: No mediastinal lymphadenopathy by CT size criteria. Unremarkable appearance of the thyroid gland. Cardiac: No cardiomegaly or pericardial effusion. No thoracic aortic aneurysm or dissection. Abdomen: No significant upper abdominal abnormality identified. Musculoskeletal: No concerning osseous abnormality. Left mastectomy. Left axillary surgical clips. IMPRESSION: 1. No CTA evidence of acute pulmonary thromboembolism. 2. No pulmonary infiltrate or pleural effusion. 3. Prior left mastectomy and 4. Lymph node dissection. 5. Minimal left upper lung fibrosis, likely treatment-related. Electronically signed by: Mariaelena Gonsalez MD 03/19/2020 9:55 PM YARD PERSON Due to temporary technical issues with the PACS/Fluency reporting system, reports are being signed by the in house radiologist without review as a courtesy to ensure prompt reporting. The interpreting r adiologist is fully responsible for the content of the report.
--- OUTSIDE RECORDS SUMMARY | 2020-03-20 11:49 | XMS REPORT | Continuity of Care Document ---
:1955 Author Organization [facility] t Address [address] [place] [address] Care Team Providers Name Role Phone Lab, Fam Pob I Attending Clinician Unavailable Doctor Unassigned, Name Attending Clinician Unavailable Payers Payer Name Policy Type Policy Number Effective Date Expiration Date S ource Problems This patient has no known problems. Allergies, Adverse Reactions, Alerts Allergy Allergy Status Severity Reaction(s) Onset Inactive Treating Comm ents Source Name Type Date Date Clinician No Known DA Active U 2006-02 [facility] Contrast 03-07 [place] [facility] 00:[facility]: d [facility] No Known DA Active U 2006-02 [facility] Drug 03-07 [place] Allergie 00:00: d [facility] No Known DA Active U 2006-02 [facility] Food 03-07 [place] Allergie 00:00: d [facility] No Known DA Active U 2006-02 [facility] Other 03-07 [place] Allergie 00:00: d [facility] Medications This patient has no known medications. Procedures This patient has no known procedures. Encounters Start End Encounter Admission Attending Care Care Encounter Source Date/Time Date/Time Type Type Clinicians Facility Department ID 2019-09-19 2019-09-19 Laboratory Lab, [facility] [id number] 14:30:23 14:50:23 Only Fam Pob I Health [id number] [place] [id number] [place] [id number] [address] 2019-09-19 2019-09-19 Letter Doctor ELIZABETH [id number] 00:00:00 00:00:00 (Out) Unassigned, CHRISTIAN [id number] [facility] [id number] Results This patient has no known results.
--- NOTE | 2020-03-20 11:54 | EKG ---
Test Date: 2020-03-19 Test Time: 20:06:35 Freight Trucker: MCKENZIE MEASUREMENT RESULTS: Intervals: Rate: 64 NJ: 144 QRSD: 80 QT: 438 QTc: 451 Brooks: P: 57 NJ: 144 QRS: 70 T: 80 INTERPRETIVE STATEMENTS: Normal sinus rhythm Left ventricular hypertrophy with repolarization abnormality Abnormal ECG Compared to ECG 08/08/2019 11:33:18 Left ventricular hypertrophy now present Early repolarization now present Myocardial infarct finding no longer present Electronically Signed On 03-20-20 11:53:20 [employer] TESTING by Pb Hicks
== END 2020-03-19 23:29 | disposition home or self-care (01) ==
LOC: ER 15:40
DX: I10 Essential (primary) hypertension (principal); R79.89 Other specified abnormal findings of blood chemistry; Z85.3 Personal history of malignant neoplasm of breast; Z90.12 Acquired absence of left breast and nipple
CPT/HCPCS: 93005; 85025; 80048; 36415; 83735; 85610; 80076; 84484; 83880; 71275; 71045; 93971; 99284; Q9967